=== PATIENT | male | born 1940 | race Caucasian/White ===

== ENCOUNTER 2019-01-15 18:36 | Emergency (ER) | payer OTHER, BC ==
--- OUTSIDE RECORDS SUMMARY | 2019-01-15 18:39 | XMS REPORT ---
:1940 Author Organization [facility] Address [address] [place] [address] Care Team Providers Name Role Phone Unavailable Unavailable Unavailable Payers Payer Name Policy Type Policy Number Effective Date Expiration Date Problems This patient has no known problems. Allergies, Adverse Reactions, Alerts Allergy Allergy Status Severity Reaction(s) Onset Inactive Treating Comments Name Type Date Date Clinician No Known DA Active U 2016-04 Drug -23 Allergies 00:00:0 0 Medications This patient has no known medications. Results Test Description Test Time Test Comments Text Results Atomic Results Result Comments - XR FLUORO FOR SPINE 2019-01-15 12:51:00 Patient Name: SANG VARMA INJ Unit No: [id number] EXAMS: CPT CODE: [id number] XR FLUORO FOR SPINE INJ 57753 LUMBAR TRANSFORAMINAL INJECTION REFERRING PHYSICIAN:Bob Glez M.D. PREOPERATIVE DIAGNOSIS: Degenerative Lumbar Disc Disease. POSTOPERATIVE DIAGNOSIS: Lumbar spinal stenosis PROCEDURES PERFORMED 1. Fluoroscopically guided needle localization of the bilateral L3, bilateral L4, bilateral L5 spinal nerve/nerves with transforaminal epidural steroid injection/injections. 2. Transforaminal epidurogram/epidurograms at bilateral L3, bilateral L4, bilateral L5. FINDINGS: Poor filling bilateral L3, bilateral L4, bilateral L5. Concordant provocation left L4 back, right L5 discordant buttock. Pain relief-100%. ANTIBIOTIC: Cefazolin ESTIMATED BLOOD LOSS: Minimal ANESTHESIA: (TIVA )Total intravenous anesthetic (patient intolerant to sedatives and hypnotics) COMPLICATIONS: None DETAILS OF PROCEDURE: After obtaining stable vital signs, informed consent and IV access, with no known contraindications to proceeding, the patient was taken to the fluoroscopy suite and placed in a prone position with all extremities padded and appropriate monitors placed. A sterile prep and drape was performed over the lumbosacral spine. Using fluoroscopic visualization at each level the insertion site was marked for a paravertebral approach to the foramen. Using standard technique, a 25 gauge needle was advanced to the base of the pedicle. In AP view, final positioning was obtained outside the 6 on the clock position on the pedicle. Then, 1 ml of Isovue-300 contrast was injected to produce the epidurograms. No paresthesias were elicited with needle insertion or injection and there were no signs of intravascular or intrathecal uptake. Then, with 1 ml of 4% lidocaine and 10 mg of triamcinolone was injected incrementally with frequent negative aspirations. There were no signs of intravascular or intrathecal uptake. Each subsequent level was done using the same technique and medications. The patient's vital signs remained stable. The patient was taken to the PACU in good condition. at 1251 Reported and signed by: Herman Lake M.D. [facility] NAME: SANG VARMA [address] [facility] PHYS: Herman Berger MD [place] [address] : 1940 AGE: 78 SEX: M LOC: [facility] PHONE #: [phone] EXAM DATE: 01/15/2019 STATUS: [place] [facility] [place] [facility] [place] #: [phone] RAD #: [id number] D/C DT PAGE 1 Signed Report (CONTINUED) Patient Name: AVANISANG Unit No: [id number] EXAMS: CPT CODE: [id number] XR FLUORO FOR SPINE INJ 08681 <Continued> CC: Jim Rodarte MD; Herman Lake MD Technologist: RACHEL MOORE RT(R) Transcribed D/ (1251) t.[email or web address].[email or web address] [facility] NAME: SANG VARMA [address] [facility] PHYS: Herman Berger MD [place] [address] : 1940 AGE: 78 SEX: M LOC: [facility] PHONE #: [phone] EXAM DATE: 01/15/2019 STATUS: [place] [facility] [place] #: [phone] RAD #: [id number] D/C DT PAGE 2 Signed Report Patient Name: SANG VARMA Unit No: [id number] EXAMS: CPT CODE: [id number] XR FLUORO FOR SPINE INJ [id number] <Continued> Orig Print D/T: S: 01/15/2019 (1254) [facility] NAME: SANG VARMA [address] [facility] PHYS: DOCUD - Doctor,Herman Cates MD [place], [place] [address] : 1940 AGE: 78 SEX: M LOC: [facility] PHONE #: [phone] EXAM DATE: 01/15/2019 STATUS: [place] [facility] [place] #: [phone] RAD #: [id number] D/C DT PAGE 3 Signed Report GLUBED 2019-01-15 11:32:00 Test Item Value Reference Range Comments GLUBED (test code=GLUBED) 141 mg/dL 60-125 [id number] 10:32:00 Test Item Value Reference Range Comments GLUBED (test code=GLUBED) 116 mg/dL 60-125
[2019-01-15 19:48] LABS: Hematocrit 36.8 % (39.6-49.0); RBC Red Blood Cell Count 3.85 M/uL (4.33-5.43)
[2019-01-15 19:49] LABS: Absolute Lymphocytes (CBC) 0.7 K/uL (0.7-4.9); Absolute Monocytes 0.1 K/uL (0.1-1.3); Absolute Neutrophil 5.1 K/uL (1.8-8.0); Basophils % 0.3 % (0-1.3); Eosinophils % 0.1 % (0-4.4); Lymphocytes % 11.4 % (15.3-44.8); MPV 9.9 fL (7.6-11.3); Monocytes % 1.3 % (3.3-12.3)
[2019-01-15] MEDS ORDERED: INSULIN -REGULAR HUMAN 50 UNIT/0.5 ML ML ONE (19:52)
[2019-01-15] MEDS ORDERED: NA CHLORIDE 0.9% 1,000 ML ONE (19:52)
[2019-01-15 20:09] LABS: Potassium 4.7 mmol/L (3.5-5.1)
[2019-01-15 20:23] LABS: Blood Morphology Comment NOT SEEN (NOT SEEN); Platelet Estimate ADEQ; Urine White Blood Cell Casts OK
[2019-01-15 21:50] LABS: Potassium 4.9 mmol/L (3.5-5.1)
--- NOTE | 2019-01-15 21:59 | EDPHYS ---
Physician Documentation [facility] Name: Roscoe Keke Age: 78 yrs Sex: Male : 1940 Arrival Date: 01/15/2019 Time: 18:40 Bed 15 Private MD: Jim Rodarte V ED Physician Jamar Henson HPI: 01/15 18:59 This 78 yrs old Male presents to ER via Ambulatory with complaints of High snw Blood Sugar. 18:59 The patient or guardian reports hyperglycemia, that was potentially precipitated by snw steroid injections. Onset: The symptoms/episode began/occurred suddenly. Associated signs and symptoms: Pertinent positives: None. Current symptoms: In the emergency department the patient's symptoms are unchanged from the initial presentation. It is unknown whether or not the patient has had similar symptoms in the past. pt rec'd steroid injections for spinal stenosis yesterday, today FSBS 500+. Historical: - Allergies: 18:45 No Known Allergies; aj - PSHx: 18:45 cervial fusion; R rotator cuff surgery; Hernia repair; Vasectomy; hemmorhoids; aj - Immunization history:: Adult Immunizations up to date. - Social history:: Smoking status: Patient/guardian denies using tobacco. - Ebola Screening: : Patient negative for fever greater than or equal to 101.5 degrees Fahrenheit, and additional compatible Ebola Virus Disease symptoms Patient denies exposure to infectious person Patient denies travel to an Ebola-affected area in the 21 days before illness onset No symptoms or risks identified at this time. ROS: 18:58 Constitutional: Negative for fever, chills, and weight loss, Eyes: Negative for injury, snw pain, redness, and discharge, ENT: Negative for injury, pain, and discharge, Neck: Negative for injury, pain, and swelling, Cardiovascular: Negative for chest pain, palpitations, and edema, Respiratory: Negative for shortness of breath, cough, wheezing, and pleuritic chest pain, Abdomen/GI: Negative for abdominal pain, nausea, vomiting, diarrhea, and constipation, Back: Negative for injury and pain, : Negative for injury, bleeding, discharge, and swelling, MS/Extremity: Negative for injury and deformity, Skin: Negative for injury, rash, and discoloration, Neuro: Negative for headache, weakness, numbness, tingling, and seizure. Exam: 18:58 Constitutional: This is a well developed, well nourished patient who is awake, alert, snw and in no acute distress. Head/Face: Normocephalic, atraumatic. Eyes: Pupils equal round and reactive to light, extra-ocular motions intact. Lids and lashes normal. Conjunctiva and sclera are non-icteric and not injected. Cornea within normal limits. Periorbital areas with no swelling, redness, or edema. ENT: Nares patent. No nasal discharge, no septal abnormalities noted. Tympanic membranes are normal and external auditory canals are clear. Oropharynx with no redness, swelling, or masses, exudates, or evidence of obstruction, uvula midline. Mucous membranes moist. Neck: Trachea midline, no thyromegaly or masses palpated, and no cervical lymphadenopathy. Supple, full range of motion without nuchal rigidity, or vertebral point tenderness. No Meningismus. Chest/axilla: Normal chest wall appearance and motion. Nontender with no deformity. No lesions are appreciated. 18:58 Abdomen/GI: Soft, non-tender, with normal bowel sounds. No distension or tympany. No guarding or rebound. No evidence of tenderness throughout. Back: No spinal tenderness. No costovertebral tenderness. Full range of motion. Skin: Warm, dry with normal turgor. Normal color with no rashes, no lesions, and no evidence of cellulitis. MS/ Extremity: Pulses equal, no cyanosis. Neurovascular intact. Full, normal range of motion. Neuro: Awake and alert, GCS 15, oriented to person, place, time, and situation. Cranial nerves II-XII grossly intact. Motor strength 5/5 in all extremities. Sensory grossly intact. Cerebellar exam normal. Normal gait. 18:58 Cardiovascular: Rate: normal, Rhythm: regular, Pulses: no pulse deficits are appreciated, Heart sounds: murmur, systolic, Edema: is not appreciated. 18:58 Respiratory: mild respiratory distress is noted, Respirations: shallow respirations, tachypnea, Breath sounds: are clear throughout. Vital Signs: 18:45 BP 140 / 69; Pulse 90; Resp 18; Temp 97.9; Pulse Ox 97% on R/A; Weight 88 kg; Height 5 aj ft. 7 in. (170.18 cm); 19:30 BP 165 / 77; Pulse 91; Resp 20; Pulse Ox 97% on R/A; lp1 20:30 BP 161 / 80; Pulse 91; Resp 18; Pulse Ox 98% on R/A; lp1 21:30 BP 164 / 85; Pulse 88; Resp 18; Pulse Ox 98% on R/A; lp1 18:45 Body Mass Index 30.38 (88.00 kg, 170.18 cm) aj MDM: 18:47 Patient medically screened. snw 21:20 Data reviewed: vital signs, nurses notes. Data interpreted: Pulse oximetry: on room air snw is 97 %. Interpretation: normal. Counseling: I had a detailed discussion with the patient and/or guardian regarding: the historical points, exam findings, and any diagnostic results supporting the discharge/admit diagnosis, lab results. Response to treatment: blood sugar trending down. Pt unaware of recent kidney function. Last in our system creatinine 1.0, today 2 + with GFR 29. Will hydrate and recheck C7 . 01/15 19:05 Order name: Basic Metabolic Panel; Complete Time: 20:22 snw 01/15 19:05 Order name: CBC with Diff; Complete Time: 20:24 snw 01/15 19:52 Order name: CBC Smear Scan; Complete Time: 20:24 EDMS 01/15 21:07 Order name: Chem 7; Complete Time: 21:56 snw 01/15 19:05 Order name: IV Saline Lock; Complete Time: 19:46 snw 01/15 19:05 Order name: Labs collected and sent; Complete Time: 19:46 snw 01/15 20:09 Order name: FSBS; Complete Time: 20:13 snw Administered Medications: 19:45 Drug: Insulin Regular Human 5 units {Co-Signature: lorenzo (Sandi Iqbal RN).} Route: IVP; lp1 Site: right antecubital; 20:28 Follow up: Response: Blood sugar is lowered lp1 19:45 Drug: Insulin Regular Human 5 units {Co-Signature: lorenzo (Sandi Iqbal RN).} Route: lp1 Sub-Q; Site: right upper arm; 20:28 Follow up: Response: Blood sugar is lowered lp1 19:46 Drug: NS 0.9% 500 ml Volume: 500 ml; Route: IV; Rate: 1 bolus; Site: right antecubital; lp1 20:13 Follow up: IV Status: Completed infusion; IV Intake: 500ml lp1 20:28 Drug: NS 0.9% 500 ml Route: IV; Rate: bolus; Site: right antecubital; lp1 21:03 Follow up: IV Status: Completed infusion; IV Intake: 500ml lp1 22:05 Drug: NS 0.9% 500 ml Route: IV; Rate: bolus; Site: right antecubital; lp1 22:42 Follow up: IV Status: Completed infusion; IV Intake: 500ml lp1 Point of Care Testing: Blood Glucose: 19:31 Blood Glucose: 413 mg/dL; lp1 20:25 Blood Glucose: 331 mg/dL; lp1 Ranges: Critical Glucose Levels:Adult <50 mg/dl or >400 mg/dl <40 mg/dl or >180 mg/dl Disposition: 01/16 07:00 Co-signature as Attending Physician, Jamar Henson MD I agree with the assessment and kdr plan of care. Disposition: 01/15/19 21:58 Discharged to Home. Impression: Hyperglycemia, unspecified, Volume depletion, Renal insufficiency. - Condition is Stable. - Discharge Instructions: Dehydration, Elderly, Diabetes and Sick Day Management, Hyperglycemia, Blood Glucose Monitoring, Adult, Rehydration, Elderly. - Medication Reconciliation Form, Thank You Letter, Antibiotic Education, Prescription Opioid Use form. - Follow up: Jim Rodarte MD; When: 1 - 2 days; Reason: Recheck today's complaints, Continuance of care, Re-evaluation by your physician. Follow up: Emergency Department; When: As needed; Reason: Worsening of condition. Signatures: Dispatcher [employer] Itzel Wayne, RN Jaamr Cavanaugh MD MD kdr Therrien, Shelly, CURATOR [employer]IC[employer]UM-C CURATOR H[employer]IC[employer]USEUM-Csnw Queenie Pate RN RN lp1 Sandi Iqbal RN bb Corrections: (The following items were deleted from the chart) 01/15 22:44 21:58 01/15/2019 21:58 Discharged to Home. Impression: Hyperglycemia, unspecified; lp1 Volume depletion; Renal insufficiency. Condition is Stable. Forms are Medication Reconciliation Form, Thank You Letter, Antibiotic Education, Prescription Opioid Use. Follow up: Jim Rodarte; When: 1 - 2 days; Reason: Recheck today's complaints, Continuance of care, Re-evaluation by your physician. Follow up: Emergency Department; When: As needed; Reason: Worsening of condition. snw
--- NOTE | 2019-01-15 21:59 | ER ---
Nurse's Notes [facility] Name: [place] Keke Age: 78 yrs Sex: Male : 1940 Arrival Date: 01/15/2019 Time: 18:40 Bed 15 Private MD: Jim Rodarte V Diagnosis: Hyperglycemia, unspecified;Volume depletion;Renal insufficiency Presentation: 01/15 18:44 Presenting complaint: Patient states: Reports high blood sugar readings at home after aj steroid injections today. Reports 473 at home. Transition of care: patient was not received from another setting of care. Onset of symptoms was January 15, 2019. Risk Assessment: Do you want to hurt yourself or someone else? Patient reports no desire to harm self or others. Initial Sepsis Screen: Does the patient meet any 2 criteria? No. Patient's initial sepsis screen is negative. Does the patient have a suspected source of infection? No. Patient's initial sepsis screen is negative. Care prior to arrival: None. 18:44 Method Of Arrival: Ambulatory aj 18:44 Acuity: VIDHYA 3 aj Triage Assessment: 18:45 General: Appears in no apparent distress. comfortable, Behavior is calm, cooperative, aj appropriate for age. Pain: Denies pain. Neuro: Level of Consciousness is awake, alert, obeys commands, Oriented to person, place, time, situation, Appropriate for age. Respiratory: Airway is patent Respiratory effort is even, unlabored, Respiratory pattern is regular, symmetrical. Derm: Skin is intact, is healthy with good turgor, Skin is pink, warm \T\ dry. normal. Historical: - Allergies: 18:45 No Known Allergies; aj - PSHx: 18:45 cervial fusion; R rotator cuff surgery; Hernia repair; Vasectomy; hemmorhoids; aj - Immunization history:: Adult Immunizations up to date. - Social history:: Smoking status: Patient/guardian denies using tobacco. - Ebola Screening: : Patient negative for fever greater than or equal to 101.5 degrees Fahrenheit, and additional compatible Ebola Virus Disease symptoms Patient denies exposure to infectious person Patient denies travel to an Ebola-affected area in the 21 days before illness onset No symptoms or risks identified at this time. Screenin:47 Abuse screen: Denies threats or abuse. Denies injuries from another. Nutritional lp1 screening: No deficits noted. Tuberculosis screening: No symptoms or risk factors identified. 20:08 Fall Risk None identified. lp1 Assessment: 19:30 General: Appears in no apparent distress. Behavior is appropriate for age. Pain: Denies lp1 pain. Neuro: Level of Consciousness is awake, alert, obeys commands, Oriented to person, place, time, situation. Cardiovascular: Patient's skin is warm and dry. Respiratory: Airway is patent Respiratory effort is even, Respiratory pattern is regular. GI: No deficits noted. : No signs and/or symptoms were reported regarding the genitourinary system. EENT: No signs and/or symptoms were reported regarding the EENT system. Derm: Skin is pink, warm \T\ dry. Musculoskeletal: No deficits noted. 20:30 Reassessment: Patient appears in no apparent distress at this time. No changes from lp1 previously documented assessment. Patient and/or family updated on plan of care and expected duration. Pain level reassessed. 21:30 Reassessment: Patient appears in no apparent distress at this time. Patient is alert, lp1 oriented x 3, equal unlabored respirations, skin warm/dry/pink. Aware of waiting for repeat lab results. 22:06 Reassessment: Patient aware of pending discharge on completion of IV fluids Patient lp1 states feeling better. Vital Signs: 18:45 BP 140 / 69; Pulse 90; Resp 18; Temp 97.9; Pulse Ox 97% on R/A; Weight 88 kg; Height 5 aj ft. 7 in. (170.18 cm); 19:30 BP 165 / 77; Pulse 91; Resp 20; Pulse Ox 97% on R/A; lp1 20:30 BP 161 / 80; Pulse 91; Resp 18; Pulse Ox 98% on R/A; lp1 21:30 BP 164 / 85; Pulse 88; Resp 18; Pulse Ox 98% on R/A; lp1 18:45 Body Mass Index 30.38 (88.00 kg, 170.18 cm) aj ED Course: 18:40 Patient arrived in ED. mr 18:40 Jim Rodarte MD is Private Physician. mr 18:45 Triage completed. aj 18:45 Arm band placed on left wrist. Patient placed in an exam room. aj 18:47 Melanie Kunz FNP-C is [facility]. snw 18:47 Jamar Henson MD is Attending Physician. snw 19:18 Queenie Pate, RN is Primary Nurse. lp1 19:35 Inserted saline lock: 22 gauge in right antecubital area, using aseptic technique. lp1 Blood collected. 19:46 Patient has correct armband on for positive identification. Placed in gown. Call light lp1 in reach. Pulse ox on. NIBP on. 21:56 No provider procedures requiring assistance completed. lp1 21:57 Jim Rodarte MD is Referral Physician. snw 22:43 IV discontinued, No redness/swelling at site. Pressure dressing applied. lp1 Administered Medications: 19:45 Drug: Insulin Regular Human 5 units {Co-Signature: lorenzo (Sandi Iqbal RN).} Route: IVP; lp1 Site: right antecubital; 20:28 Follow up: Response: Blood sugar is lowered lp1 19:45 Drug: Insulin Regular Human 5 units {Co-Signature: lorenzo (Sandi Iqbal RN).} Route: lp1 Sub-Q; Site: right upper arm; 20:28 Follow up: Response: Blood sugar is lowered lp1 19:46 Drug: NS 0.9% 500 ml Volume: 500 ml; Route: IV; Rate: 1 bolus; Site: right antecubital; lp1 20:13 Follow up: IV Status: Completed infusion; IV Intake: 500ml lp1 20:28 Drug: NS 0.9% 500 ml Route: IV; Rate: bolus; Site: right antecubital; lp1 21:03 Follow up: IV Status: Completed infusion; IV Intake: 500ml lp1 22:05 Drug: NS 0.9% 500 ml Route: IV; Rate: bolus; Site: right antecubital; lp1 22:42 Follow up: IV Status: Completed infusion; IV Intake: 500ml lp1 Point of Care Testing: Blood Glucose: 19:31 Blood Glucose: 413 mg/dL; lp1 20:25 Blood Glucose: 331 mg/dL; lp1 Ranges: Intake: 20:13 IV: 500ml; Total: 500ml. lp1 21:03 IV: 500ml; Total: 1000ml. lp1 22:42 IV: 500ml; Total: 1500ml. lp1 Outcome: 21:58 Discharge ordered by . snw 22:43 Discharged to home ambulatory, with significant other. lp1 22:43 Condition: good 22:43 Discharge instructions given to patient, Instructed on discharge instructions, follow up and referral plans. Demonstrated understanding of instructions, follow-up care. 22:44 Patient left the ED. lp1 Signatures: Itzel Pradhan, RN Melanie Mackay, PUBLICITY DIRECTOR-C PUBLICITY DIRECTOR-Csnw CastilloRae mr Queenie Pate RN RN lp1 Sandi Iqbal RN bb
[2019-01-15] MEDS ORDERED: NA CHLORIDE 0.9% 500 ML ONE (22:17)
[2019-01-15 23:30] VITALS: TEMP 97.9
[2019-01-15 23:32] VITALS: O2SAT 98
[2019-01-15 23:33] VITALS: BP 164/85
== END 2019-01-15 22:44 | disposition home or self-care (01) ==
LOC: ER 18:36
DX: R73.9 Hyperglycemia, unspecified (principal); N28.9 Disorder of kidney and ureter, unspecified; E86.9 Volume depletion, unspecified
CPT/HCPCS: 96361; 85025; 80048 ×2; 36415; 82962 ×2; 96372; 96374; 99284; J7030

== ENCOUNTER 2021-04-09 06:58 | Emergency (ER) | payer BC, OTHER ==
--- OUTSIDE RECORDS SUMMARY | 2021-04-09 07:01 | XMS REPORT | Continuity of Care Document ---
:1940 Author Organization [facility] [place] t Address [address] [place] [address] Care Team Providers Name Role Phone Komal LI, A Primary Care Physician Komal LI, A Attending Clinician Payers Payer Name Policy Type Policy Number Effective Expiration Source Date Date [facility] - [id number] 2020 Unive rsity of MANAGED 00:00:00 [place] [facility] MEDICAREUNITED Branch HEALTHCARE MEDICARE ADV [id number]/ 1-PresentMedicare Adv HMO Problems Condition Condition Condition Status Onset Resolution Last Treating Co mments Source Name Details Category Date Date Treatment Clinician Date Spondylosi Spondylosi Disease Active 2020-0 U nivers s, s, 3-04 ity of thoracic thoracic 00:00: [place] [facility] Left flank Left flank Disease Active 2020-0 U nivers pain pain 3-04 ity of 00:00: [address] [place] [address] Branch Renal Renal Disease Active 2020-0 Overview: Univer s cyst, left cyst, left 3-04 X 2 it y of 00:00: [address] [place] [address] Renal Renal Disease Active 2020-0 Univers calcificat calcificat 3-04 it y of ion ion 00:00: [address] Branch Fatty Fatty Disease Active 2020-0 Univers liver liver 3-04 ity of 00:00: [place] [facility] Glaucoma Glaucoma Disease Active 2020-0 Unive rs 2-27 ity of 00:00: [place] [facility] DM2 DM2 Disease Active 2020-0 Univers (diabetes (diabetes 2-27 ity of mellitus, mellitus, 00:00: s type 2) type 2) 00 [facility] Hearing Hearing Disease Active 2020-0 Univers loss loss 2-27 ity of 00:: [place] [facility] Hyperchole Hyperchole Disease Active 2020-0 U nivers sterolemia sterolemia 2-27 it y of 00:00: [place] [address] Medical Branch Essential Essential Disease Active 2020-0 Uni vers hypertensi hypertensi 2-27 it y of on on 00:: [place] [address] Medical Branch COPD COPD Disease Active 2020-0 Univers (chronic (chronic 2-27 ity of obstructiv obstructiv [place] pulmonary pulmonary Bran ch disease) disease) Spinal Spinal Disease Active 2020-0 Univers stenosis, stenosis, 2-27 ity of lumbar lumbar 00:: [place] [facility] Heart Heart Disease Active 2020-0 Univers murmur murmur 2-27 ity of 00:: [place] [facility] Cataracts, Cataracts, Disease Active 2020-0 U nivers bilateral bilateral 2-27 ity of 00:: [place] [facility] Personal Personal Disease Active Unive rs history of history of it y of spine spine [place] surgery surgery Medical [place] CKD CKD Disease Active Univers (chronic (chronic ity of kidney kidney [facility]), disease), Medi elmira stage III stage III Bran ch Allergies, Adverse Reactions, Alerts Allergy Allergy Status Severity Reaction(s) Onset Inactive Treating Comm ents Source Name Type Date Date Clinician No Known DA Active U [facility] Drug 05-11 [place] Allergie 00:00: [facility] 00 [facility] Social History Social Habit Start Date Stop Date Quantity Comments Source Exposure to Not sure University of SARS-CoV-2 [facility] (event) Branch Tobacco use and 2020-12-15 2020-12-15 Never used Universit y of exposure 00:00:00 00:00:00 [facility] Alcohol intake 2020-12-15 2020-12-15 Current drinker Unive rsity of 00:00:00 00:00:00 of alcohol [facility] (finding) Branch Tobacco Comment 2019-10-15 2019-10-15 Quit in 1982 Univers ity of 00:00:00 00:00:00 [facility] Sex Ass[birth year] At [birth year] Universit y of 00:00:00 00:00:00 [facility] Smoking Status Start Date Stop Date Source Former smoker 2020-12-15 00:00:00 2020-12-15 00:00:00 Universi ty of [facility] Medications Ordered Filled Start Stop Current Ordering Indication Dosage Frequency Signature Comments Components Source Medication Medication Date Date Medication? Clinician (SIG) Name Name losartan 25 Yes Essential 25mg Take 1 Univers mg tablet 5-05 hypertensio tablet by ity of 00:00: n mouth [place] 00 daily. Medical DOSE Branch DECREASE. hydrALAZINE Yes Essential 100mg Take 1 Univers 100 mg 5-05 hypertensio tablet by i ty of tablet 00:00: n mouth 2 [place] 00 (two) Medical times Branch daily. STOP NIFEDIPINE ER AND DECREASE LOSARTAN TO 25MG DAILY. SITagliptin Yes Type 2 100mg Take 1 U nivers (JANUVIA) 4-29 diabetes tablet by i ty of 100 mg 00:00: mellitus mouth [place] tablet 00 without daily. Medical complicatio Branch n, without long-term current use of insulin propranolol Yes Essential TAKE 1 Univers [place] 120 mg 4-29 hypertensio CAPSULE BY ity of 24 hr 00:00: n MOUTH ONCE [place] capsule 00 DAILY Medical BEFORE A [place] MEAL glimepiride Yes Type 2 TK 2 TS PO Univers 4 mg tablet 4-29 diabetes D ity of 00:00: mellitus [place] 00 without Medical complicatio Branch n, without long-term current use of insulin fluticasone Yes Chronic 1{puff} Inhale 1 Univers -umeclidin- 4-29 obstructive Puff i ty of [place] 00:[place]: [place]. [place] (TRELEGY 00 disease, [place] Medica l ELLIPTA) unspecified mouth Bra formerly [facility] 100-62.5-25 COPD type after each mcg DsDv use. atorvastati Yes Hypercholes TK 1 T PO Univers n 10 mg 4-29 terolemia D ity of tablet 00:00: [place] [facility] hydroCHLORO Yes Essential TK 1 T PO Univers thiazide 25 4-29 hypertensio TWO TIMES ity of mg tablet 00:00: n EVERY WEEK [place] [facility] aspirin Yes 81mg Take 81 mg Univ ers (ADULT LOW 3-25 by mouth ity o f DOSE 14:34: daily. [place] ASPIRIN) 81 48 Medical mg EC Branch tablet lancets Yes Type 2 ONCE A DAY Un rodrigo (ONETOUCH 1-25 diabetes CHECK ity o f DELICA PLUS 00:00: mellitus GLUCOSE [place] LANCET) 33 00 without LEVELS; Med ical gauge Misc complicatio ICD-10 Branch n, without code E11.9 long-term current use of insulin ONETOUCH Yes TEST ONCE Univ ers ULTRA BLUE 1-27 A DAY ity of TEST STRIP 00:00: [place] strip 00 [facility] Immunizations Ordered Filled Immunization Date Status Comments Sourc e Immunization Name Name SARS-COV-2 COVID-19 2020-11-05 Completed Unive rsity of PFIZER VACCINE 00:00:00 [facility] SARS-COV-2 COVID-19 2020-10-15 Completed Unive rsity of PFIZER VACCINE 00:00:00 [facility] TDAP 2020-05-16 Completed University of 00:00:00 [facility] Zoster Vaccine 2020-05-16 Completed University of Recombinant 00:00:00 [facility] Influenza High Dose 2020-05-04 Completed Unive rsity of Quad 00:00:00 [facility] Influenza High Dose 2019-05-19 Completed Unive rsity of 00:00:00 [facility] Pneumococcal 2019-05-19 Completed University o f Polysaccharide, 00:00:00 [place] Med ical PPSV23 (PNEUMOVAX) Branch Zoster Vaccine 2019-05-18 Completed University of Recombinant 00:00:00 [facility] Pneumococcal 13 2018-05-19 Completed Universit y of Conjugate, PCV13 00:00:00 [facility] dical (Prevnar 13) Branch Procedures Procedure Date / Time Performed Performing Clinician Sour e US RENAL WITH DOPPLER 2020-12-22 14:41:34 Diallo Sauceda Un iversity of [facility] Plan of Care Planned Activity Planned Date Details Comments Source Future Scheduled 2030-05-16 DTaP,Tdap,and Td Univers ity of [place] Test 00:00:00 Vaccines (2 - Td) Medical Br anch [code = DTaP,Tdap,and Td Vaccines (2 - Td)] Future Scheduled 2021-12-15 Creatinine [facility] Test 00:00:00 measurement Medical Branch (procedure) [code = [id number]] Future Scheduled 2021-12-15 Diabetic foot [facility] Test 00:00:00 examination Medical Branch (regime/therapy) [code = [id number]] Future Scheduled 2021-11-10 [facility] (procedure[facility] [code = Medical Branch [id number]] Future Scheduled 2021-09-16 Calculated low [facility] Test 00:00:00 density lipoprotein Medical Branch cholesterol level (procedure) [code = [id number]] Future Scheduled 2021-06-16 Hemoglobin A1c [facility] Test 00:00:00 measurement Medical Branch (procedure) [code = [id number]] Future Scheduled 2021-05-03 [facility] (procedure) [code = Medical Branch [id number]] Future Scheduled 2021-02-16 Microalbumin [facility] Test 00:00:00 measurement, urine, Medical Branch quantitative (procedure) [code = 671710459] Future Scheduled 2006 Medicare Annual Universi [facility] Test 00:00:00 Wellness Visit Medical Bran h (procedure) [code = 858587407466017] Future Scheduled 1959 [facility] (procedure) [code = Medical Branch [id number]] Encounters Start End Encounter Admission Attending Care Care Encounter Source Date/Time Date/Time Type Type Clinicians Facility Department ID 2021-03-30 2021-03-30 Hospital [facility] [id number] 11:53:51 23:59:00 Encounter Diallo Young [id number] [place] [id number] [place] [id number] 2021-03-30 2021-03-30 Office [facility] [id number] 10:40:01 11:38:05 Visit Diallo Clemente [facility] [id number] [place] [id number] [place] [id number] nal 044 Office Building One Results Test Description Test Time Test Comments Results Result [facility] holden Comments US RENAL WITH [facility], Radiant Results [facility] 6 Inft User - [facility] 14:55:48 12/22/2020 9:57 AM Bran h CDTHISTORY: CKD III.TECHNIQUE: Both kidneys are evaluated in multiple planes with the patientin different positions. Doppler samples obtained over each kidney.FINDINGS: Comparison has been made with previous ultrasound study of10/20/2019.Both kidneys appear to be of normal size and shape with no hydronephrosis,perine phric fluid collection detected. Right kidney is 12.8 x 6.3 x 5.3 cmin size and left kidney 10.3 x 5.5 x 4.6 cm in size. Cortex of both kidneysappear echogenic, consistent with chronic primary medical renal diseasewith cortical thickness ranging between 16 and 12 mm.No bilobed shaped 2.3 x 1.4 cm cyst noted in the left kidney near its lowerpole. Renal veins were patent.Doppler sample yielded resistive index in the range between 0.69 and 0.81over the right kidney and between 0.65 and 0.80 over the left kidney.Peak systolic velocity recorded over the aorta was 49 cm/sec,over rightrenal artery was 92 cm/sec,over the left renal artery was 131 cm/sec withRAR on right side of 1.88 and on left side 2.67.CONCLUSIONS:1. Normal size kidneys with echogenic cortex, consistent with chronicprimary medical renal disease without hydronephrosis.2. Bilobed shaped cyst in the lower pole of the left kidney.3. Doppler studies are unremarkable for any significant renovascularinsuffici ency. - XR FLUORO FOR 2018-12-19 Patient Name: SPINE INJ 0 SANG VARMA 12:51:00 Unit No: [id number] EXAMS: CPT CODE: [id number] XR FLUORO FOR SPINE INJ 42022 LUMBAR TRANSFORAMINAL INJECTION REFERRING PHYSICIAN:Bob Glez M.D. PREOPERATIVE DIAGNOSIS: Degenerative Lumbar Disc Disease. POSTOPERATIVE DIAGNOSIS: Lumbar spinal stenosis PROCEDURES PERFORMED 1. Fluoroscopically guided needle localization of the bilateral L3, bilateral L4, bilateral L5 spinal nerve/nerves with transforaminal epidural steroid injection/injections. 2. Transforaminal epidurogram/epidurogr ams at bilateral L3, bilateral L4, bilateral L5. [...] Reported and signed by: Herman Lake M.D. [facility] NAME: SANG VARMA [address] [facility] PHYS: DOCUD - Herman Lake MD [place], [place] [address] : 1940 AGE: 78 SEX: M LOC: [place] PHONE #: [phone] EXAM DATE: 01/15/2019 STATUS: REG [facility] FAX #: [phone] RAD #: [id number] D/C DT PAGE 1 Signed Report (CONTINUED) Patient Name: SANG VARMA Unit No: [id number] EXAMS: CPT CODE: [id number] XR FLUORO FOR SPINE INJ [id number] <Continued> CC: Jim Rodarte MD; Herman Lake MD Technologist: RACHEL MOORE RT(R) Transcribed D/ (1251) t.SDR.UVD [facility] NAME: SANG VARMA [address] [place] [address] PHYS: Herman Berger MD [place] [address] : 1940 AGE: 78 SEX: M LOC: [place] PHONE #: [phone] EXAM DATE: 01/15/2019 STATUS: REG [facility] FAX #: [phone] RAD #: [id number] D/C DT PAGE 2 Signed Report Patient Name: SANG VARMA Unit No: [id number] EXAMS: CPT CODE: [id number] XR FLUORO FOR SPINE INJ 50615 <Continued> Orig Print D/T: S: 01/15/2019 (1254) [facility] NAME: SANG VARMA [address] [place] [address] PHYS: Herman Berger MD [place] [address] : 1940 AGE: 78 SEX: M LOC: [place] PHONE #: [phone] EXAM DATE: 01/15/2019 STATUS: REG [facility] FAX #: [phone] RAD #: [id number] D/C DT PAGE 3 Signed Report GLUBED 2019-01-15 11:32:00 Test Item Value Reference Range Interpretation Comme nts GLUBED (test code = GLUBED) 141 mg/dL 60-125 H [id number] 10:32:00 Test Item Value Reference Range Interpretation Comments GLUBED (test code = GLUBED) 116 mg/dL 60-125 N
[2021-04-09 07:34] LABS: Absolute Lymphocytes (CBC) 1.2 K/uL (0.7-4.9); Basophils % 0.7 % (0-1.3); Hematocrit 44.5 % (39.6-49.0); Lymphocytes % 14.9 % (15.3-44.8); RBC Red Blood Cell Count 4.73 M/uL (4.33-5.43)
[2021-04-09 07:36] LABS: Protime INR 0.97
[2021-04-09] MEDS ORDERED: ASPIRIN 81 MG CHEWABLE TABLET ONE (07:43)
[2021-04-09 07:53] LABS: ALT/SGPT 36 U/L (12-78); AST/SGOT 21 U/L (15-37); Albumin 3.9 g/dL (3.4-5.0); Alkaline Phosphatase 55 U/L (45-117); BUN Blood Urea Nitrogen 32 mg/dL (7-18); Bicarbonate 27 mmol/L (21-32); Bilirubin Direct 0.2 mg/dL (0-0.2); Bilirubin Total 0.7 mg/dL (0.2-1.0); Glucose Level 194 mg/dL (74-106); NT PRO-BNP 192 pg/mL (<450); Potassium 4.1 mmol/L (3.5-5.1); Protein, Total 7.2 g/dL (6.4-8.2); Sodium Level 139 mmol/L (136-145); Troponin (Emerg Dept Use Only) < 0.02 ng/mL (0.0-0.045)
--- NOTE | 2021-04-09 07:59 | RAD REPORT ---
EXAM DESCRIPTION: RAD - Chest Single View - 04/09/2021 7:47 am CLINICAL HISTORY: SOB COMPARISON: Two view chest July 2013 TECHNIQUE: AP portable chest image was obtained 04/09/2021 7:47 am . FINDINGS: Lung volumes are low. No peripheral mass or consolidation. Lung base atelectasis evident. No measurable interstitial edema or infiltrate suspected. Cardiomediastinal silhouette is enlarged. This is believed to be due to body habitus affects, shallow inspiration portable technique and pericardial fat pads. No vascular engorgement or other findings t o suggest acute failure or volume overload. No measurable pleural effusion and no pneumothorax. No ac comanche bony abnormality seen. No acute aortic findings suspected. IMPRESSION: No acute cardiopulmonary process identifiable. Chest exam is limited as detailed.
[2021-04-09] MEDS ORDERED: METHYLPREDNISOLONE 125 MG INJ ONE (09:24)
[2021-04-09] MEDS ORDERED: IPRATROPIUM BROM 0.5MG/2.5ML ONE (09:25)
[2021-04-09] MEDS ORDERED: ALBUTEROL 2.5 MG/3 ML NEB SOL ONE (09:25)
[2021-04-09 09:47] LABS: SARS-COV-2 RT PCR NEGATIVE (NEGATIVE)
--- NOTE | 2021-04-09 10:49 | EDPHYS ---
Physician Documentation [facility] Name: Magazine Keke Age: 80 yrs Sex: Male : 1940 Arrival Date: 04/09/2021 Time: 06:59 Bed 5 Private MD: Jim Rodarte V ED Physician Smith James HPI: 04/09 07:10 This 80 yrs old Male presents to ER via EMS with complaints of Shortness Of cp Breath, Nausea/Vomiting. 07:10 The patient has shortness of breath at rest. Onset: The symptoms/episode began/occurred cp 2 day(s) ago. Duration: The symptoms are continuous, and are steadily getting worse. Associated signs and symptoms: Pertinent positives: nausea, vomiting, headache, Pertinent negatives: chest pain, productive cough, diaphoresis, fever. Severity of symptoms: in the emergency department the symptoms are unchanged despite home interventions. Historical: - Allergies: 07:15 No Known Allergies; aa5 - Home Meds: 07:30 glimepiride 4 mg Oral tab [Active]; propranolol 120 mg Oral Cs24 once daily [Active]; aa5 atorvastatin 10 mg oral tab 1 tab once daily [Active]; losartan 25 mg oral tab 1 tab once daily [Active]; hydrochlorothiazide 25 mg Oral tab 1 tab twice a week [Active]; Vitamin B [Active]; Vitamin C Oral [Active]; Vitamin D Oral [Active]; aspirin 81 mg Oral tab daily [Active]; Trelegy Ellipta 100-62.5-25 mcg inhalation dsdv 1 puff once daily [Active]; Januvia oral [Active]; tamsulosin 0.4 mg oral cap 1 cap once daily [Active]; hydralazine 100 mg Oral tab 1 tab 2 times per day [Active]; Myrbetriq 50 mg oral Tb24 1 tab once daily [Active]; sitagliptin 100 mg oral tab 1 tab once daily [Active]; - PMHx: 07:15 Diabetes mellitus; COPD; Hypercholesterolemia; Hypertensive disorder; aa5 07:30 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 - Social history:: Smoking status: Patient denies any tobacco usage or history of. ROS: 07:15 Constitutional: Negative for body aches, chills, fever, poor PO intake. cp 07:15 Eyes: Negative for injury, pain, redness, and discharge. cp 07:15 Cardiovascular: Negative for chest pain, edema, palpitations. 07:15 Respiratory: Positive for shortness of breath, at rest. Negative for cough, wheezing. 07:15 Abdomen/GI: Positive for nausea and vomiting, Negative for abdominal pain, diarrhea, constipation, anorexia, black/tarry stool, rectal bleeding. 07:15 : Negative for urinary symptoms. 07:15 Neuro: Positive for headache, Negative for altered mental status, dizziness, syncope, weakness. 07:15 All other systems are negative. Exam: 07:20 Constitutional: The patient appears in no acute distress, alert, awake, cp non-diaphoretic, non-toxic, well developed, well nourished. 07:20 Head/Face: Normocephalic, atraumatic. cp 07:20 Eyes: Periorbital structures: appear normal, Conjunctiva: normal, no exudate, no injection, Sclera: no appreciated abnormality, Lids and lashes: appear normal, bilaterally. 07:20 ENT: External ear(s): are unremarkable, Nose: is normal, Mouth: Lips: moist, Oral mucosa: pink and intact, moist, Posterior pharynx: Airway: no evidence of obstruction, patent, Tonsils: are normal in appearance, erythema, is not appreciated, exudate, is not appreciated. 07:20 Neck: ROM/movement: is normal, is supple, without pain, no range of motions limitations. 07:20 Chest/axilla: Inspection: normal, Palpation: is normal, no crepitus, no tenderness. 07:20 Cardiovascular: Rate: normal, actual rate is 60 bpm, Rhythm: regular, Edema: is not appreciated, JVD: is not appreciated. 07:20 Respiratory: the patient does not display signs of respiratory distress, Respirations: labored breathing, that is mild, intercostal retractions, are absent, Breath sounds: bronchial sounds, that are mild, are heard diffusely, decreased breath sounds, that are mild, throughout, stridor, is not appreciated, wheezing: is not appreciated. 07:20 Abdomen/GI: Inspection: abdomen appears normal, Bowel sounds: active, all quadrants, Palpation: abdomen is soft and non-tender, in all quadrants, rebound tenderness, is not appreciated, involuntary guarding, is not appreciated. 07:20 Back: pain, is absent, ROM is normal. 07:20 Neuro: Orientation: to person, place \T\ time. Mentation: is normal, Cerebellar function: is grossly normal, Motor: moves all fours, strength is normal, Sensation: is normal. 07:32 ECG was reviewed by the Attending Physician. cp Vital Signs: 07:15 BP 173 / 65; Pulse 60; Resp 14 S; Temp 97.8(O); Pulse Ox 96% on R/A; Weight 91.63 kg aa5 (R); Height 5 ft. 7 in. (170.18 cm) (R); Pain 4/10; 09:05 BP 178 / 83; Pulse 56; Resp 14 S; Pulse Ox 99% on Nebulizer Mask; aa5 10:00 BP 168 / 78; Pulse 58; Resp 16 S; Pulse Ox 97% on R/A; aa5 07:15 Body Mass Index 31.64 (91.63 kg, 170.18 cm) aa5 MDM: 07:01 Patient medically screened. cp 07:30 Differential diagnosis: Bronchitis CHF exacerbation, Chronic Obstructive Pulmonary cp Disease Myocardial Infarction pneumonia, Pneumothorax pulmonary edema, Pulmonary Embolism Sepsis Unstable Angina. 10:47 Data reviewed: vital signs, nurses notes, lab test result(s), EKG, radiologic studies, cp plain films. 10:47 Test interpretation: by ED physician or midlevel provider: ECG, plain radiologic cp studies. Counseling: I had a detailed discussion with the patient and/or guardian regarding: the historical points, exam findings, and any diagnostic results supporting the discharge/admit diagnosis, the presence of at least one elevated blood pressure reading (>120/80) during this emergency department visit, lab results, radiology results, the need for outpatient follow up, an civil engineering drafter, to return to the emergency department if symptoms worsen or persist or if there are any questions or concerns that arise at home. 10:47 ED course: VSS. Patient reports symptoms markedly improved. Patient ambulated in ED cp while monitoring oxygen sats that remained 95% and above. Will discharge to home for continued monitoring. 04/09 07:03 Order name: Basic Metabolic Panel; Complete Time: 08:00 cp 04/09 08:00 Interpretation: Normal except: GLUC 194; BUN 32; CRE 1.43; GFR 48. cp 04/09 07:03 Order name: CBC with Diff; Complete Time: 08:00 cp 04/09 09:54 Interpretation: Normal except: LYM% 14.9; PLT 141. cp 04/09 07:03 Order name: LFT's; Complete Time: 08:00 cp 04/09 07:03 Order name: Magnesium; Complete Time: 08:00 cp 04/09 07:03 Order name: NT PRO-BNP; Complete Time: 08:00 cp 04/09 09:54 Interpretation: Within normal limits: NT PRO-BNP 192. cp 04/09 07:03 Order name: PT-INR; Complete Time: 08:00 cp 04/09 07:03 Order name: Troponin (emerg Dept Use Only); Complete Time: 08:00 cp 04/09 09:54 Interpretation: Within normal limits: TROPED < 0.02. cp 04/09 07:03 Order name: XRAY Chest (1 view); Complete Time: 08:00 cp 04/09 09:56 Interpretation: Report reviewed. 04/09 07:11 Order name: Influenza Screen (a \T\ B); Complete Time: 09:53 cp 04/09 09:47 Order name: COVID-19/FLU A+B; Complete Time: 09:49 EDMS 04/09 09:50 Interpretation: Results reviewed. 04/09 07:03 Order name: EKG; Complete Time: 07:04 cp 04/09 07:03 Order name: Cardiac monitoring; Complete Time: 07:28 cp 04/09 07:03 Order name: EKG - Nurse/Tech; Complete Time: 07:28 cp 04/09 07:03 Order name: IV Saline Lock; Complete Time: 07:28 cp 04/09 07:03 Order name: Labs collected and sent; Complete Time: 07:28 cp 04/09 07:03 Order name: O2 Per Protocol; Complete Time: 07:28 cp 04/09 07:03 Order name: O2 Sat Monitoring; Complete Time: 07:28 cp 04/09 10:12 Order name: Misc. Order: ambulate patient; Complete Time: 11:09 cp EC:32 Rate is 61 beats/min. Rhythm is regular. OH interval is normal. QRS interval is normal. cp QT interval is normal. T waves are Inverted in lead aVR. Interpreted by me. Reviewed by me. Administered Medications: 07:28 Drug: Aspirin Chewable Tablet 324 mg Route: PO; jl7 08:20 Follow up: Response: No adverse reaction aa5 09:00 Drug: SOLU-Medrol (methylPrednisoLONE) 125 mg Route: IVP; Site: left forearm; aa5 09:10 Follow up: Response: No adverse reaction aa5 09:00 Drug: Albuterol - atroVENT (ipratropium) (3:1) (2.5 mg - 0.5 mg) 3 ml Route: Nebulizer; aa5 09:20 Follow up: Response: No adverse reaction aa5 Disposition: 04/10 07:41 Co-signature as Attending Physician, Smith James MD I agree with the assessment and silvia plan of care. Disposition Summary: 04/09/21 10:48 Discharge Ordered Location: Home cp Problem: an acute exacerbation cp Symptoms: have improved cp Condition: Stable cp Diagnosis - COPD/ Chronic obstructive pulmonary disease with (acute) exacerbation cp - Hypertensive heart disease without heart failure cp Followup: cp - With: Private Physician - When: 1 - 2 days - Reason: Recheck today's complaints Discharge Instructions: - Discharge Summary Sheet cp - Chronic Obstructive Pulmonary Disease Exacerbation cp - Managing Your Hypertension cp Forms: - Medication Reconciliation Form cp - Thank You Letter cp - Antibiotic Education cp - Prescription Opioid Use cp Prescriptions: - albuterol sulfate 90 mcg/actuation Inhalation HFA aerosol inhaler - inhale 2 puff by INHALATION route every 6 hours; 1 Inhaler; Refills: 0, Product cp Selection Permitted - Prednisone 20 mg Oral Tablet - take 2 tablets by ORAL route once daily for 5 days; 10 tablet; Refills: 0, cp Product Selection Permitted Signatures: Dispatcher [employer] Smith Rosado MD MD cha Calderon, Audri RN RN aa5 Smith Bishop PA PA cp Leal, Jahala, RN RN jl7 Corrections: (The following items were deleted from the chart) 04/09 09:04 07:12 CORONAVIRUS+ ordered. EDSD EDMS 09:54 09:54 Normal except: LYM% 14.9. cp cp
--- NOTE | 2021-04-09 10:49 | ER ---
Nurse's Notes [facility] Name: Barrett Keke Age: 80 yrs Sex: Male : 1940 Arrival Date: 04/09/2021 Time: 06:59 Bed 5 Private MD: Jim Rodarte V Diagnosis: COPD/ Chronic obstructive pulmonary disease with (acute) exacerbation;Hypertensive heart disease without heart failure Presentation: 04/09 07:15 Chief complaint: EMS states: Headache, SOB, N/V x 2 days ago. Pt reports 2 episodes of aa5 diarrhea a few days ago but none since then. Denies cough. 07:15 Coronavirus screen: nausea, shortness of breath, vomiting. Ebola Screen: Patient aa5 negative for fever greater than or equal to 101.5 degrees Fahrenheit, and additional compatible Ebola Virus Disease symptoms. Initial Sepsis Screen: Does the patient meet any 2 criteria? No. Patient's initial sepsis screen is negative. Does the patient have a suspected source of infection? No. Patient's initial sepsis screen is negative. Risk Assessment: Do you want to hurt yourself or someone else? Patient reports no desire to harm self or others. Onset of symptoms was March 2021. 07:15 Method Of Arrival: EMS: [facility] aa5 07:15 Acuity: VIDHYA 3 aa5 07:15 Care prior to arrival: IV initiated. Glucose check: 197. aa5 Historical: - Allergies: 07:15 No Known Allergies; aa5 - Home Meds: 07:30 glimepiride 4 mg Oral tab [Active]; propranolol 120 mg Oral Cs24 once daily [Active]; aa5 atorvastatin 10 mg oral tab 1 tab once daily [Active]; losartan 25 mg oral tab 1 tab once daily [Active]; hydrochlorothiazide 25 mg Oral tab 1 tab twice a week [Active]; Vitamin B [Active]; Vitamin C Oral [Active]; Vitamin D Oral [Active]; aspirin 81 mg Oral tab daily [Active]; Trelegy Ellipta 100-62.5-25 mcg inhalation dsdv 1 puff once daily [Active]; Januvia oral [Active]; tamsulosin 0.4 mg oral cap 1 cap once daily [Active]; hydralazine 100 mg Oral tab 1 tab 2 times per day [Active]; Myrbetriq 50 mg oral Tb24 1 tab once daily [Active]; sitagliptin 100 mg oral tab 1 tab once daily [Active]; - PMHx: 07:15 Diabetes mellitus; COPD; Hypercholesterolemia; Hypertensive disorder; aa5 07:30 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 - Social history:: Smoking status: Patient denies any tobacco usage or history of. Screenin:28 Abuse screen: Denies threats or abuse. Denies injuries from another. Nutritional jl7 screening: No deficits noted. Tuberculosis screening: No symptoms or risk factors identified. Fall Risk IV access (20 points). Total Mistry Fall Scale indicates No Risk (0-24 pts). Assessment: 07:25 General: Appears comfortable, Behavior is calm, cooperative. Pain: Complains of pain in aa5 head Pain currently is 4 out of 10 on a pain scale. Quality of pain is described as aching, Pain began 2-3 days ago. Neuro: Level of Consciousness is awake, alert, obeys commands, Oriented to person, place, time, situation. Cardiovascular: Denies chest pain, Heart tones S1 S2 present Rhythm is sinus rhythm. Respiratory: Reports shortness of breath Airway is patent Respiratory effort is even, unlabored, Respiratory pattern is regular, symmetrical, Denies cough. GI: Abdomen is round non-distended, Bowel sounds present X 4 quads. Abd is soft and non tender X 4 quads. Reports nausea, vomiting, Diarrhea a few days ago and none since then. : No signs and/or symptoms were reported regarding the genitourinary system. EENT: No signs and/or symptoms were reported regarding the EENT system. Derm: Skin is pink, warm \T\ dry. Musculoskeletal: Range of motion: intact in all extremities. 08:20 Reassessment: Patient is alert, oriented x 3, equal unlabored respirations, skin aa5 warm/dry/pink. Pt denies any complaints. . 09:00 Reassessment: Patient is alert, oriented x 3, equal unlabored respirations, skin aa5 warm/dry/pink. Pt resting in bed with eyes closed, easy to awaken to verbal stimuli. Denies any complaints at this time. Awaiting COVID-19 result, estimated time per lab is 1hr at this time. . 10:00 Reassessment: Patient is alert, oriented x 3, equal unlabored respirations, skin aa5 warm/dry/pink. 11:00 Reassessment: Patient is alert, oriented x 3, equal unlabored respirations, skin aa5 warm/dry/pink. Ambulated pt per PA. Pt with steady gait upon ambulation, O2 sat remained 95 to 97% upon ambulation, pt denied SOB. Pt placed back in bed. PA was notified of findings. . Vital Signs: 07:15 BP 173 / 65; Pulse 60; Resp 14 S; Temp 97.8(O); Pulse Ox 96% on R/A; Weight 91.63 kg aa5 (R); Height 5 ft. 7 in. (170.18 cm) (R); Pain 4/10; 09:05 BP 178 / 83; Pulse 56; Resp 14 S; Pulse Ox 99% on Nebulizer Mask; aa5 10:00 BP 168 / 78; Pulse 58; Resp 16 S; Pulse Ox 97% on R/A; aa5 07:15 Body Mass Index 31.64 (91.63 kg, 170.18 cm) aa5 ED Course: 06:59 Patient arrived in ED. em 07:00 Smith Bishop PA is PHCP. cp 07:00 Smith James MD is Attending Physician. cp 07:28 Page Oquendo, VEENA is Primary Nurse. aa5 07:28 Initial lab(s) drawn, by me, sent to lab. Maintain EMS IV. Dressing intact. Good blood jl7 return noted. Site clean \T\ dry. Gauge \T\ site: 18 left FA. 07:28 Patient has correct armband on for positive identification. Placed in gown. Bed in low jl7 position. Call light in reach. Side rails up X 1. visual merchandise manager on. Pulse ox on. NIBP on. Warm blanket given. 07:30 Arm band placed on right wrist. jl7 07:34 Triage completed. aa5 07:47 XRAY Chest (1 view) In Process Unspecified. EDMS 09:00 No provider procedures requiring assistance completed. aa5 09:28 Jim Rodarte MD is Private Physician. cp 11:05 IV discontinued, intact, bleeding controlled, No redness/swelling at site. Pressure aa5 dressing applied. Administered Medications: 07:28 Drug: Aspirin Chewable Tablet 324 mg Route: PO; jl7 08:20 Follow up: Response: No adverse reaction aa5 09:00 Drug: SOLU-Medrol (methylPrednisoLONE) 125 mg Route: IVP; Site: left forearm; aa5 09:10 Follow up: Response: No adverse reaction aa5 09:00 Drug: Albuterol - atroVENT (ipratropium) (3:1) (2.5 mg - 0.5 mg) 3 ml Route: Nebulizer; aa5 09:20 Follow up: Response: No adverse reaction aa5 Outcome: 10:48 Discharge ordered by MD. cp 11:07 Discharged to home via wheelchair, with family. aa5 11:07 Condition: stable 11:07 Discharge instructions given to patient, Instructed on discharge instructions, follow up and referral plans. medication usage, Demonstrated understanding of instructions, follow-up care, medications, Prescriptions given X 2. 11:09 Patient left the ED. aa5 Signatures: Dispatcher [employer] Anupam Nascimento, RN RN Page Granger RN RN aa5 Smith Bishop, GRACY PA Drea Luna RN RN jl7 Corrections: (The following items were deleted from the chart) 09:14 09:00 SOLU-Medrol (methylPrednisoLONE) 125 mg IVP in left antecubital aa5 aa5
[2021-04-09 11:14] VITALS: TEMP 97.8
[2021-04-09 11:15] VITALS: BP 178/83; O2SAT 99
== END 2021-04-09 11:09 | disposition home or self-care (01) ==
LOC: ER 06:58
DX: J44.1 Chronic obstructive pulmonary disease with (acute) exacerbation (principal); I11.9 Hypertensive heart disease without heart failure; E11.9 Type 2 diabetes mellitus without complications; Z20.822 Contact with and (suspected) exposure to COVID-19; Z79.82 Long term (current) use of aspirin
CPT/HCPCS: 93005; 85025; 80048; 36415; 83735; 85610; 80076; 84484; 83880; 0240U; 87804 ×2; 71045; 96374; 99285; J2930